=== PATIENT | female | born 1945 | race Caucasian/White ===

== ENCOUNTER → 2019-12-15 11:50 | Outpatient (CLI) | payer OTHER, SELFPAY ==
--- NOTE | ~2019-12-15 | XR_ITS ---
EXAMINATION: XR hip LT min 2V DATE: 12/15/2019 12:13 INDICATION: Acute onset left hip pain post fall. TECHNIQUE: Anteroposterior and frog-leg lateral views of the left hip were obtained. COMPARISON: CT abdomen and pelvis dated 09/09/2018 FINDINGS: Alignment is normal. No fracture. Left hip joint space appears relatively preserved with chondrocalci nosis evident along the superolateral aspect of the femoral head. Heterotopic ossification/enthesopat hy at the ischial tuberosity and along the proximal hamstring tendons. Postoperative changes with 3 s mall metallic coils project over the central lower pelvis. IMPRESSION: 1. No acute osseous abnormality. Reviewed, dictated and finalized at location A.
== END ==
PROVIDERS: PCP Internal Medicine; Visit Provider Internal Medicine
DX: M25.552 Pain in left hip (principal)
CPT/HCPCS: 73502

== ENCOUNTER 2020-01-06 16:15 | Inpatient (IN) | payer OTHER, SELFPAY ==
[2020-01-06] VITALS (23 sets, daily range): BP systolic 105–146; BP diastolic 53–99; PULSE 55–66; RESP 14–25; TEMP 36.2–36.8; O2SAT 97–100; BMI 25.7
--- NOTE | ~2020-01-06 | CT_ITS ---
EXAMINATION: CTA chest PE protocol DATE: 01/06/2020 18:02 CDT INDICATION: Shortness of breath. History of breast cancer. Pleuritic chest pain. TECHNIQUE: Computed tomographic angiography (CTA) of the chest was performed with 100 mL Omnipaque-35 0 intravenous contrast. The dose-length product was 174.24 mGy-cm. Maximum intensity projection 3D-re constructions of the aorta and other arteries were constructed by the technologist on a separate work station. Automated exposure control and iterative reconstruction technique were employed. COMPARISON: CT dated 01/15/2011. FINDINGS: Study is technically adequate without evidence for pulmonary embolism. There is enlargement of the pulmonary arteries consistent with pulmonary arterial hypertension. No significant pleural or pericardial effusion. Cardiomegaly. There is a pleural-based right upper lobe mass measuring 2.2 x 1 .9 cm on coronal image 34. There is a 9 mm right upper lobe nodule, image 29. There is dependent atel ectasis. There are left upper lobe pleural-based nodules measuring 9 mm, image 36. There is a pleural -based left lower lobe nodule measuring 3.6 x 3 cm, axial image 69. The there is a 2 x 1.4 cm right h ilar lymph node, image 83. Status post left mastectomy. The visualized aspects of the upper abdomen a re unremarkable. No osteolytic or osteoblastic lesions are seen. There is dextroscoliosis of the thor acic spine. Moderate-severe thoracic spondylosis. There is mild peripheral interstitial lung disease, likely chronic. IMPRESSION: 1. Multiple bilateral pulmonary nodules/masses and right hilar lymphadenopathy, compatible with metas tatic disease, likely secondary to known breast cancer. 2: No evidence for pulmonary embolism. 3: Pulmonary arterial hypertension. 4: Mild interstitial lung disease, likely chronic. Reviewed, dictated and finalized at location A. IMPRESSION: 1. Multiple bilateral pulmonary nodules/masses and right hilar lymphadenopathy, compatible with metastatic disease, likely secondary to known breast cancer. 2: No evidence for pulmonary embolism. 3: Pulmonary arterial hypertension. 4: Mild interstitial lung disease, likely chronic.
--- NOTE | 2020-01-06 16:30 | ECG_ITS ---
Measurements Intervals [place] Rate: 64 P: 87 PA: 170 QRS: 2 QRSD: 113 T: 16 QT: 443 QTc: 457 Interpretive Statements SINUS RHYTHM INTRAVENTRICULAR CONDUCTION DELAY BASELINE ARTIFACT- I, II, III, AVR, AVF, V2-V4 BORDERLINE ECG Electronically Signed On 01-07-2020 7:03:56 CDT by Damion Armstrong D.O.
--- NOTE | 2020-01-06 16:46 | ED.SOB ---
HPI - SOB/Dyspnea General Chief Complaint: Shortness of Breath/Dyspnea Stated Complaint: LIGHTHEADED, SOB, CONFUSED Time Seen by Provider: 01/06/20 16:31 Source: patient and RN notes reviewed Mode of arrival: ambulatory Limitations: no limitations History of Present Illness HPI Narrative: Pt is a 74 y/o female with a Hx of breast cancer, who presents to the ED with c/o lt sided chest pain and SOB starting 2 days ago. She notes that her pain is aggravated with movement and breathing. Pt also reports a low-grade fever of 99 degrees and chronic LLE edema, but denies any productive cough, nausea, vomiting, or ABD pain. She notes that she hasn't had any recent sick contacts or travel. Follows at [facility] with Dr Camarillo (?) for her breast cancer. MD elicited complaint: shortness of breath and chest pain (lt sided) Onset (ago): day(s) (2) Associated symptoms: fever (low-grade) and other (LLE edema (chronic)) Treatment prior to arrival: none Related Data Allergies Allergy/AdvReac Type Severity Reaction Status Date / Time Cultivated Oat Pollen Allergy Unknown NASAL Uncoded 06/14/19 12:56 CONGESTION, EYES WATER Molds and Smuts Allergy Unknown NASAL Uncoded 06/14/19 12:56 CONGESTION, EYES WATER Review of Systems Review of Systems: All systems reviewed & are unremarkable except as noted in HPI and below Constitutional: Constitutional: Reports fever(s) (low-grade) Cardiovascular: Cardiovascular: Reports chest pain (lt sided) and Reports leg edema (LLE edema (chronic)) Respiratory: Respiratory: Denies cough (productive) and Reports dyspnea Gastrointestinal: Gastrointestinal: Denies abdominal pain, Denies nausea and Denies vomiting PMFSH Past Medical History Medical History A-fib Ankle fracture, right Anxiety Arthritis Back pain Bowel obstruction Cancer of left breast Cataracts, bilateral GERD (gastroesophageal reflux disease) HLD (hyperlipidemia) HTN (hypertension) Inguinal hernia Surgical History Surgical History History of bilateral knee replacement History of bowel resection History of hip replacement rt hip History of hysterectomy History of lumpectomy of left breast Hx of appendectomy Hx of cardiac catheterization Hx of cataract surgery Hx of dilation and curettage Hx of inguinal hernia repair Hx of tonsillectomy Hx of tubal ligation Family History Family History (Updated 05/27/14 @ 07:13 by DOCTOR UNKNOWN) Father Cerebrovascular accident Malignant neoplasm of prostate Mother Family history of throat cancer Family history of heart disease in male family member before age 55 Social History Social History Smoking status: Never smoker Gender identity (if verbalized by the patient): Female Exam Const: General: no acute distress and other (elderly; frail) HENMT: Head: normocephalic Chest: Chest palpation & inspection: tenderness (diffuse anterior lt chest wall tenderness) and other (Port-a-Cath in place on rt chest) Resp: Effort & Inspection: normal respiratory effort Auscultation: clear to auscultation bilaterally Cardio: Rate: regular rate Rhythm: regular rhythm Heart sounds: no murmurs GI: Inspection: normal to inspection GI Palp: Yes Soft to palpation and No Tenderness to palpation present (GI) Auscultation: normal bowel sounds Skin: General skin exam: normal color and other (warm; dry) Neuro: General: patient oriented x3 (alert) Speech: normal speech Motor exam (neuro): Other motor observations present (motor intact) Extrem: General: edema (3-4+ acute on chronic edema in lt leg; trace-1+ edema on rt leg) Psych: Mental Status: mental status grossly normal Affect: normal affect Course Course Emergency Course: d/w patient, she believes she is too weak to be able to safely access her home and would consider assisted
--- NOTE | 2020-01-06 16:52 | PC.NURSE ---
Pt having SOB, cough, chest pain, and dizziness for 2 days. Pt states she tried claritin with symptoms getting worse. Pt is A&Ox 4. Pt lungs diminished throughout. Pt states she has mid sternal chest tightness. Pt states she has been feeling weak today.
[2020-01-06 17:20] LABS: Basophils Percent Auto 0.8 % (0.2-1.2); Eosinophils Absolute Auto 0.2 K/mm3 (0-0.3); Eosinophils Percent Auto 2.9 % (0-4.4); Hematocrit 30.4 % (37.0-47.0); Immature Granulocyte Absolute 0.01 K/mm3 (0.00-0.031); Immature Granulocyte Percent A 0.2 % (0-0.5); Lymphocytes Absolute Auto 2.65 K/mm3 (0.9-3.2); Lymphocytes Percent Auto 50.4 % (18.3-44.2); Mean Corpuscular HGB Conc 32.9 g/dl (32-36); Mean Corpuscular Volume 100.3 fl (80-100); Mean Platelet Volume 10.7 fl (7.4-10.4); Monocytes Absolute Auto 0.6 K/mm3 (0.1-0.6); Neutrophils Absolute Auto 1.8 K/mm3 (1.3-6.7); Neutrophils Percent Auto 34.7 % (45.5-73.1); Platelet Count Result 209 k/mm3 (150-375); Red Blood Count 3.03 M/mm3 (4.2-5.4); Red Cell Distribution Width 13.3 % (11.5-14.5); White Blood Count 5.3 K/mm3 (4.5-10.0)
[2020-01-06 17:32] LABS: Alanine Aminotransferase 14 U/L (4-35); Albumin Level 3.6 g/dL (3.5-5.1); Alkaline Phosphatase 82 U/L (38-126); Aspartate Amino Transferase 33 U/L (14-36); Bilirubin,Total 0.3 mg/dL (0.2-1.3); Blood Urea Nitrogen 19 mg/dL (7-17); Calcium 9.1 mg/dL (8.4-10.2); Carbon Dioxide 25 mmol/L (22-30); Chloride 100 mmol/L (98-107); D Dimer 0.74 ug/mL (<0.48); Estimated CRCL calculation 41 ml/min; Estimated Glomerular Filt Rate > 60; Glucose 88 mg/dL (65-105); Sodium 131 mmol/L (137-145)
[2020-01-06 17:45] LABS: NT Pro B Type Natriuretic Pept 267 PG/ML (5-100); Troponin I < 0.012 ng/mL (0.000-0.034)
[2020-01-06] MEDS: LACTATED RINGERS 1,000 ML 60 ML IV CONT (21:36)
--- NOTE | 2020-01-06 22:16 | ADMGEN ---
This patient, Eryn Lynch, was admitted to Medical Room 348-01. Patient/family oriented to hospital policies and general routines including ID bracelet, bed and alarms, visiting hours, pain management, procedures, bathroom and other care routines, personal items, smoking policy, room service/diet, and visiting hours. Valuables list has been completed. Information on how to activate the Rapid Response Team has been discussed. Patient/Family are encouraged to report perceived risks to care and to ask questions if they do not understand what they are told or what they should do.
[2020-01-07] VITALS (7 sets, daily range): BP systolic 109–138; BP diastolic 53–62; PULSE 55–88; RESP 16–18; TEMP 36.7–36.9; O2SAT 92–99; BMI 25.7
--- NOTE | 2020-01-07 | ECHO_ITS ---
Patient Info Name: Eryn Lynch Age: 74 years : 1945 Gender: Female Ht: 60 in Wt: 132 lbs BSA: 1.61 m2 HR: 70 bpm BP: 109 / 53 mmHg Heart Rhythm: Sinus Rhythm Technical Quality: Good Exam Date: 01/07/2020 11:56 AM Exam Location: [facility] Pulmonary Patient Status: Inpatient Admit Date: 01/06/2020 Staff Ordering Physician: Miguel A Barboza MD Fisher Clam: Olamide Garcia RDCS Attending Provider: Ayana Barahona DO Referring Physician: Jabari MONTES; Exam Type: CA echo doppler color flow Study Info Indications R06.02 - Shortness of breath Complete two-dimensional, color flow and Doppler transthoracic echocardiogram is performed. Summary 1. Left ventricular chamber dimension is normal. 2. Left ventricular systolic function is normal, estimated at >70%. 3. There is moderately increased left ventricular wall thickness. 4. The left ventricular diastolic function is grade I diastolic dysfunction. 5. Left atrial chamber dimension is mildly enlarged. 6. There is mild aortic valve regurgitation. 7. The mitral valve has calcified annulus. 8. There is mild mitral valve regurgitation. 9. There is mild tricuspid valve regurgitation. 10. There is mild pulmonic regurgitation. Left Ventricle Left ventricular chamber dimension is normal. Left ventricular systolic function is normal, estimated at >70%. There is moderately increased left ventricular wall thickness. The left ventricular diastolic function is grade I diastolic dysfunction. Right Ventricle Right ventricular chamber dimension is normal. Right ventricular systolic function is normal. Left Atria Left atrial chamber dimension is mildly enlarged. Right Atria Right atrial chamber dimension is normal. Atrial Septum Intact interatrial septum visualized by color flow imaging. Aortic Valve The aortic valve is trileaflet. There is mild aortic valve sclerosis. There is no aortic valve stenosis. There is mild aortic valve regurgitation. Pulmonic Valve The pulmonic valve is normal. There is no pulmonic valve stenosis. There is mild pulmonic regurgitation. Mitral Valve The mitral valve has calcified annulus. There is no mitral valve stenosis. There is mild mitral valve regurgitation. Tricuspid Valve The tricuspid valve leaflets are normal. There is no significant tricuspid valve stenosis. There is mild tricuspid valve regurgitation. No pulmonary hypertension, estimated pulmonary arterial systolic pressure is 29 mmHg. Pericardium/Pleural The pericardium appears normal. There is no pericardial effusion. Inferior Vena Cava Normal inferior vena cava with >50% collapse upon inspiration consistent with normal right atrial pressure, 10 mmHg. Aorta The aortic root size at the sinus of Valsalva is normal. The prox ascending aorta size is normal. There is mild aortic atherosclerosis. Left Ventricular Outflow Tract Name Value Normal LVOT 2D LVOT Diameter 2.0 cm LVOT Doppler LVOT Peak Gradient 4 mmHg LVOT Mean Gradient 2 mmHg LVOT VTI
[2020-01-07] MEDS: AMIODARONE HCL 200 MG TABLET PO (09:34)
[2020-01-07] MEDS: ISOSORBIDE MONONITRATE 30 MG TAB.ER.24H PO (09:34)
[2020-01-07] MEDS: GABAPENTIN 300 MG CAPSULE PO ×3 (09:35→17:53)
--- NOTE | 2020-01-07 09:41 | PM.IMHP ---
H&P: HPI History of Present Illness Chief complaint: LIGHTHEADED, SOB, CONFUSED Narrative: Date of visit 01/07/20 0900. Eryn Lynch is a 74 year old female With history of breast carcinoma and uterine carcinoma presents with increasing shortness of breath with exertion and rest. fullness in her chest but no real chest pain, no fever and occasional dry cough. Was feeling little lightheaded so came to the ER for evaluation after contacted her primary care. as stated no fever, no recent travel, and now exposure to any ill contacts. CTA in he ER showed no pulmonary emboli but multiple pulmonary nodules and lymphadenopathy. admitted for further evaluation and possible placement Review of Systems Review of Systems: Narrative: constitutional she has lost weight at least 15 lb but not sure exactly how much over last several months, appetite fair, no fever or chills has per present illness Eye no double vision scotoma mouth no pharyngitis laryngitis pulmonary as per present illness CV no chest chronic left pedal edema and no palpitation no dysuria hematuria GI no melena hematochezia diarrhea constipation . Muscle skeletal no particular joint discomfort neuro alert no focal deficits, is no seizure or syncope integument no rashes or skin breakdown PMFSH Family History Family History (Updated 01/06/20 @ 22:19 by Rebecca Garcia RN) Father Malignant neoplasm of prostate Cerebrovascular accident Mother Family history of heart disease in male family member before age 55 Family history of throat cancer Daughter Hypertension Social History Social History Smoking status: Never smoker Second hand tobacco smoke exposure: No Alcohol intake: never Substance use: never Gender identity (if verbalized by the patient): Female Spiritual care concerns: No Agree to blood products: Yes Meds Home Medications and Allergies Home Medications Medication Instructions Recorded Confirmed Type acetaminophen 1,000 mg PO DAILY PRN 01/06/20 01/06/20 History albuterol sulfate 2 puff INHALATION Q4-6H PRN 01/06/20 01/06/20 History amiodarone 200 mg PO DAILY 01/06/20 01/06/20 History duloxetine 30 mg PO HS 01/06/20 01/06/20 History gabapentin 300 mg PO TID 01/06/20 01/06/20 History ibuprofen 400 mg PO Q6H PRN 01/06/20 01/06/20 History isosorbide mononitrate 30 mg PO DAILY 01/06/20 01/06/20 History lorazepam 0.5 mg PO TID PRN 01/06/20 01/06/20 History melatonin 3 mg PO HS PRN 01/06/20 01/06/20 History oxycodone 5 mg PO Q4-6H PRN 01/06/20 01/06/20 History simvastatin 40 mg PO HS 01/06/20 01/06/20 History diphenhydramine HCl [Benadryl] 25 mg PO Q4-6H PRN 01/07/20 01/07/20 History Allergies Allergy/AdvReac Type Severity Reaction Status Date / Time Cultivated Oat Pollen Allergy Unknown NASAL Uncoded 06/14/19 12:56 CONGESTION, EYES WATER Molds and Smuts Allergy Unknown NASAL Uncoded 06/14/19 12:56 CONGESTION, EYES WATER Vital Signs Vital Signs - 24 hr 01/06/20 16:26 01/06/20 16:27 01/06/20 16:30 Temperature Pulse Rate 63 64 64 Respiratory Rate 20 18 20 Blood Pressure 120/71 Pulse Oximetry 100 100 99 01/06/20 16:31 01/06/20 16:40 01/06/20 16:43 Temperature 36.8 C Pulse Rate 65 64 62 Respiratory Rate 18 22 H 22 H Blood Pressure 110/58 L 105/74 105/74 Pulse Oximetry 97 98 01/06/20 16:45 01/06/20 17:00 01/06/20 17:33 Temperature Pulse Rate 62 65 55 L Respiratory Rate 19 15 19 Blood Pressure Pulse Oximetry 01/06/20 17:55 01/06/20 17:56 01/06/20 18:00 Temperature Pulse Rate 57 L 56 L Respiratory Rate 18 15 19 Blood Pressure 146/53 H Pulse Oximetry 01/06/20 18:02 01/06/20 18:03 01/06/20 18:15 Temperature Pulse Rate 55 L 55 L 61 Respiratory Rate 21 H 16 18 Blood Pressure 115/99 H Pulse Oximetry 01/06/20 18:30 01/06/20 19:22 01/06/20 19:31 Temperature Pulse Rate 62 R
[2020-01-07] MEDS: IBUPROFEN 400 MG TABLET PO (10:03)
--- NOTE | 2020-01-07 16:03 | HOMEO2EVAL ---
Home Oxygen Evaluation RC: Home Oxygen (O2) Evaluation Start: 01/07/20 14:39 Freq: ONCE Status: Active Protocol: RPE Activity Type Activity Date Activity User E-Sign Co-Sign Detail Recorded Client Recorded Date Recorded By Document 01/07/20 15:40 [email or web address] [id number] 01/07/20 16:03 KENJI Document 01/07/20 15:45 KENJI [id number] 01/07/20 16:03 KENJI Document 01/07/20 15:55 KENJI [id number] 01/07/20 16:03 KENJI 01/07/20 01/07/20 01/07/20 15:40 15:45 15:55 Home O2 Evaluation Test Phase Resting Exercise Resting Oxygen Delivery Room Air Room Air Room Air Pulse Oximetry (90-100 %) 96 92 96 Pulse Rate (60-100 beats/min) 68 88 70 Activity Tolerance Fair Rating of Perceived Dyspnea (PD) +2 Mild, Some Difficulty, Noticeable to the Observer Ambulation Distance (feet) 50 Home Oxygen Evaluation Comments NO HOME O2 NEEDED. Treatment Charges O2 Evaluation
--- NOTE | 2020-01-07 16:04 | PCRCNOTE ---
HOME O2 EVAL DONE, NO HOME O2 NEEDED. RN AWARE.
[2020-01-07] MEDS: ACETAMINOPHEN 500 MG TABLET 1000 MG PO (19:56)
[2020-01-07] MEDS: SIMVASTATIN 20 MG TABLET 40 MG PO (20:00)
[2020-01-07] MEDS: ENOXAPARIN 40 MG/0.4 ML SYRINGE SUB-Q (20:00)
[2020-01-07] MEDS: DULOXETINE HCL 30 MG CAPSULE.DR PO (20:00)
[2020-01-07] MEDS: MELATONIN 3 MG TABLET PO (20:00)
[2020-01-08 05:06] VITALS: BP 115/53; PULSE 60; RESP 16; TEMP 36.7; O2SAT 99
[2020-01-08 08:17] VITALS: PULSE 72
[2020-01-08] MEDS: AMIODARONE HCL 200 MG TABLET PO (08:17)
[2020-01-08] MEDS: GABAPENTIN 300 MG CAPSULE PO (08:18)
[2020-01-08] MEDS: ISOSORBIDE MONONITRATE 30 MG TAB.ER.24H PO (08:19)
--- NOTE | 2020-01-08 18:22 | PM.DS ---
DS: Diagnosis Admitting Diagnosis Admitting Diagnosis: Shortness of breath Discharge Diagnosis (1) Shortness of breath: Code(s): R06.02 - Shortness of breath Status: Acute Assessment and Plan: probably on the basis of the multiple pulmonary nodules in previous radiation therapy with interstitial lung disease. CTA revealed no emboli and BNP normal but will check echo also. Echo revealed normal ejection fraction of 70% with no valvular abnormalities. Or pulmonary hypertension.. Patient did not desaturate with ambulation. She was instructed to follow-up with her oncologist with a copy of the disc of the CT scan and has a scheduled appointment on 01/19 (2) Pulmonary nodules/lesions, multiple: Code(s): R91.8 - Other nonspecific abnormal finding of lung field Status: Acute Assessment and Plan: ER P felt was probably metastatic breast cancer which could be but had patient had and TAHBSO for uterine carcinoma in October 2018 and apparently there was some metastatic disease at that time. did have radiation and chemotherapy and is followed by Dr. Camarillo and already has a scheduled appointment on 01/19 (3) Uterine carcinoma: Code(s): C55 - Malignant neoplasm of uterus, part unspecified Status: Acute Assessment and Plan: status post total abdominal hysterectomy as above with radiation therapy and chemo for uterine carcinoma in October of 2018. (4) A-fib: Code(s): I48.91 - Unspecified atrial fibrillation Status: Acute Assessment and Plan: Remained in sinus rhythm but will continue her amiodarone. There was not thought to be enough interstitial changes to consider amiodarone as a cause for her shortness of breath. DS: Summary Hospital Course Hospital Course: 74-year-old white female with history of atrial fibrillation and breast as well as uterine cancer presented with increasing shortness of breath. CTA revealed no emboli but multiple pulmonary nodules and some interstitial changes.. Echo reading field normal ejection fraction and it was felt the shortness of breath was probably secondary to the pulmonary masses and interstitial changes. She has been on amiodarone but interstitial changes did not appear significant enough to cause her symptomatology She will follow-up with her oncologist on 01/19 with a copy of the disc of her CT of the chest Time Spent with Patient Time attestation: Total time spent providing and/or coordinating discharge services:35 minutes Exam Narrative: Exam Narrative: Condition on discharge Blood pressure 115/52 pulse 60 saturating 99% on room air Lungs are clear CV regular rate rhythm Abdomen benign Extremity chronic lymphedema of left leg no edema on right Neuro alert pleasant cooperative no focal deficits DS: Data Data Completed and Pending Labs on day of discharge: Preliminary micro results at discharge 01/07/20 07:55 Blood Culture - Preliminary Blood 01/07/20 05:28 Blood Culture - Preliminary Blood Discharge Plan Discharge Attending physician on discharge: Miguel A Barboza Discharging Clinician: Miguel A Barboza Patient Disposition: Home Health Service Activity: as tolerated Diet: regular Discharge Instructions: Per Care Coordination, Patient to discharge with [facility] [phone]. Keep scheduled appt with Dr Camarillo on 01/19 and take xray disc with you Patient Instructions: Antibiotic Form, Weakness (DC), Dyspnea (DC), Lightheadedness (ED) Stand Alone Forms: General Discharge Information Follow-up/Referrals: Czech,Eros Barclay MD [Primary Care Provider] - Keep Reg. Scheduled Appt. Discharge Medications: Continued simvastatin 40 mg tablet 40 mg PO HS RF: 0 amiodarone 200 mg tablet 200 mg PO DAILY RF: 0 isosorbide mononitrate 30 mg tablet extended release 24 hr 30 mg PO DAILY RF: 0 melatonin 3 mg Tablet 3 mg PO HS PRN (Reason: Insomnia) RF: 0 aceta
== END 2020-01-08 11:02 | disposition home health service (06) | DRG 204 ==
LOC: ANHED 20:11 → ANH3MED 20:35
PROVIDERS: Admitting Provider Hospitalist; Emergency Provider Emergency Medicine; PCP Internal Medicine; Visit Provider Internal Medicine
DX: R91.8 Other nonspecific abnormal finding of lung field (principal); J84.9 Interstitial pulmonary disease, unspecified; C50.919 Malignant neoplasm of unspecified site of unspecified female breast; I48.91 Unspecified atrial fibrillation; M19.90 Unspecified osteoarthritis, unspecified site; K21.9 Gastro-esophageal reflux disease without esophagitis; E78.5 Hyperlipidemia, unspecified; I10 Essential (primary) hypertension; F41.9 Anxiety disorder, unspecified; Z96.653 Presence of artificial knee joint, bilateral; Z96.641 Presence of right artificial hip joint; Z98.42 Cataract extraction status, left eye; Z98.41 Cataract extraction status, right eye; Z90.710 Acquired absence of both cervix and uterus; Z85.42 Personal history of malignant neoplasm of other parts of uterus
CPT/HCPCS: 36415; 71275; 80053; 83880; 84484; 85025; 85380; 87040; 93005; 93306; 94618; 97161; 97165; 97530; 97535; 99285; A9270; J1650; J7120; Q9967

== ENCOUNTER 2020-01-20 15:23 | Emergency (ER) | payer OTHER, SELFPAY ==
--- NOTE | ~2020-01-20 | XR_ITS ---
EXAMINATION: XR lumbar spine 2-3V EXAM DATE: 01/20/2020 17:39 INDICATION: Fall, low back pain. TECHNIQUE: Lumber spine frontal, lateral, lateral L5-S1 projections for interpretation. Comparison is made to prior examination from 04/07/2019. FINDINGS: There is grade 1 anterolisthesis L4 on L5 with moderate disc disease at this level. Smaller subluxations and less disc disease at multiple other levels. There is moderate lumbar facet arthropa thy. Vertebral body heights are maintained. Evaluation of the sacrum and transverse processes is some what limited due to overlying bowel gas. Sacrum, sacroiliac joints, sacral arcuate lines appear intac t. Right hip replacement. IMPRESSION: 1. Moderate lumbar spondylosis. 2. No acute fracture line identified. Reviewed, dictated and finalized at location A.
--- NOTE | ~2020-01-20 | XR_ITS ---
EXAMINATION: XR chest 2V EXAM DATE: 01/20/2020 17:38 INDICATION: Dry cough, dyspnea. Weakness. TECHNIQUE: Frontal and lateral projections of the chest obtained and reviewed. Comparison is made to prior examination from 06/14/2019. FINDINGS: Interval development of approximately 3 cm opacity in the left lower lobe. Correlating wit h recent CT pulmonary scan, patient has pulmonary metastatic disease, the others are difficult to vis ualize on this study. No evidence of superimposed acute airspace disease. No pneumothorax or pleural effusion. Cardiomediastinal silhouette is normal. There are bony degenerative changes. Right-sided CT injectable Chemo-Port. IMPRESSION: 1. No acute cardiopulmonary findings. 2. Pulmonary metastatic disease. Reviewed, dictated and finalized at location A.
--- NOTE | ~2020-01-20 | CT_ITS ---
EXAMINATION: CT brain wo con EXAM DATE: 01/20/2020 16:49 INDICATION: Fall, injury, neck pain. TECHNIQUE: Spiral CT of the head was performed without contrast. Axial, coronal and sagittal images were reviewed. The dose-length product (DLP) for this examination was 605.33 mGy-cm. The exposure w as tailored according to patient size, and iterative reconstruction (ASIR) was used as additional dos e reduction technique. Comparison is made to prior examination from 06/14/2019. FINDINGS: There is a left frontal frontal mass involving the calvarium inner table, and causing mass effect on the left frontal lobe. Uncertain whether or not this mass is invading the left frontal lobe . It measures 3.4 x 2.0 cm on axial dimensions. There is associated left frontal vasogenic edema. The re is a right frontoparietal mass measuring 2.1 cm, left frontal vertex mass measuring 8 mm. Another right frontal lobe mass measuring about 1 cm less well delineated. There is also poorly visualized le ft cerebellar mass. Vasogenic edema associated with all of these. Most likely metastatic disease. The se are new compared to prior study. No acute intracranial hemorrhage. There is mild cerebral atrophy and microangiopathy. No extra-axial collections. Aside from the decreased mineralization from the osseous involvement of the left frontal mass, calvarium is unremarkable. IMPRESSION: At least 5 metastatic lesions identified, one involving the left frontal bone and another the left cerebellum. Others appear to be cortical with associated vasogenic edema. No acute hemorrha ge. Reviewed, dictated and finalized at location A. IMPRESSION: At least 5 metastatic lesions identified, one involving the left fr ontal bone and another the left cerebellum. Others appear to be cortical with a ssociated vasogenic edema. No acute hemorrhage.
--- NOTE | ~2020-01-20 | CT_ITS ---
EXAMINATION: CT cervical spine wo con EXAM DATE: 01/20/2020 16:49 INDICATION: Fall, head injury. Brain lesions. Neck pain. TECHNIQUE: Spiral CT of the cervical spine was performed without contrast. Axial images were reviewe d. Coronal and sagittal reformatted images were also reviewed. The dose-length product (DLP) for thi s examination was 117.47 mGy-cm. The exposure was tailored according to patient size (auto mA exposu re control), and iterative reconstruction (ASIR) was used as additional dose reduction technique. Com parison is made to prior examination from 06/14/2019. FINDINGS: There is no evidence of acute cervical fracture. The odontoid process is intact. Pre-dens space is normal. Prevertebral soft tissue is normal. There are no soft tissue abnormalities identi fied. There is no disc space widening or traumatic vertebral body subluxation suspected. Advanced c ervical spondylosis. A detailed level by level evaluation of spondylosis can be added as addendum if requested. IMPRESSION: 1. No acute cervical fracture. 2. Advanced cervical spondylosis. Reviewed, dictated and finalized at location A.
[2020-01-20 15:38] VITALS: BP 157/93; PULSE 64; RESP 18; TEMP 36.8; O2SAT 96
--- NOTE | 2020-01-20 16:34 | ED.FALL ---
HPI - Fall General Chief Complaint: Fall Stated Complaint: FALL Time Seen by Provider: 01/20/20 16:23 Source: patient Mode of arrival: EMS Limitations: no limitations History of Present Illness HPI Narrative: Patient is a 74-year-old female who presents to the emergency department via EMS after sustaining a fall. Patient was sitting in her chair and bent over to pick something on her shoe and fell out of her chair. Patient is uncertain if he hit her head. Patient thinks she may have, though states she did not. Patient is complaining of a headache and neck pain. Patient landed on her buttocks and is complaining of low back pain. Patient denies any extremity injury. Patient states she has had some cold symptoms including runny nose and cough as well as some mild shortness of breath recently. Patient was recently hospitalized for shortness of breath. MD complaint: fall Fall from: chair Fall witnessed: yes, by family Place fall occurred: home Loss of consciousness: none Prolonged down time: no Location of injury: head (? Patient unsure if she hit her head, complains of headache), neck, back and buttocks Associated symptoms (after fall): headache Related Data Home Medications Medication Instructions Recorded Confirmed acetaminophen 1,000 mg PO DAILY PRN 01/06/20 01/06/20 albuterol sulfate 2 puff INHALATION Q4-6H PRN 01/06/20 01/06/20 amiodarone 200 mg PO DAILY 01/06/20 01/06/20 duloxetine 30 mg PO HS 01/06/20 01/06/20 gabapentin 300 mg PO TID 01/06/20 01/06/20 ibuprofen 400 mg PO Q6H PRN 01/06/20 01/06/20 isosorbide mononitrate 30 mg PO DAILY 01/06/20 01/06/20 lorazepam 0.5 mg PO TID PRN 01/06/20 01/06/20 melatonin 3 mg PO HS PRN 01/06/20 01/06/20 oxycodone 5 mg PO Q4-6H PRN 01/06/20 01/06/20 simvastatin 40 mg PO HS 01/06/20 01/06/20 diphenhydramine HCl [Benadryl] 25 mg PO Q4-6H PRN 01/07/20 01/07/20 Allergies Allergy/AdvReac Type Severity Reaction Status Date / Time Cultivated Oat Pollen Allergy Unknown NASAL Uncoded 01/20/20 15:28 CONGESTION, EYES WATER Molds and Smuts Allergy Unknown NASAL Uncoded 01/20/20 15:28 CONGESTION, EYES WATER Review of Systems Review of Systems: All systems reviewed & are unremarkable except as noted in HPI and below PMFSH Past Medical History Medical History A-fib Ankle fracture, right Anxiety Arthritis Back pain Bowel obstruction Cancer of left breast Cataracts, bilateral GERD (gastroesophageal reflux disease) HLD (hyperlipidemia) HTN (hypertension) Inguinal hernia Surgical History Surgical History History of bilateral knee replacement History of bowel resection History of hip replacement rt hip History of hysterectomy History of lumpectomy of left breast Hx of appendectomy Hx of cardiac catheterization Hx of cataract surgery Hx of dilation and curettage Hx of inguinal hernia repair Hx of tonsillectomy Hx of tubal ligation Family History Family History (Updated 01/06/20 @ 22:19 by Rebecca Garcia RN) Father Malignant neoplasm of prostate Cerebrovascular accident Mother Family history of heart disease in male family member before age 55 Family history of throat cancer Daughter Hypertension Social History Social History Smoking status: Never smoker Second hand tobacco smoke exposure: No Alcohol intake: never Substance use: never Gender identity (if verbalized by the patient): Female Spiritual care concerns: No Agree to blood products: Yes Exam Const: General: cooperative, no acute distress and alert Nutritional Appearance: well nourished Orientation/consciousness: patient oriented x3 Limitations: no limitations Eyes: Conjunctivae: conjunctivae normal Pupils: Equal, round and reactive pupils present Resp: Effort & Inspection: nor
[2020-01-20 17:13] VITALS: BP 176/78; PULSE 57; RESP 17; O2SAT 100
[2020-01-20 17:19] LABS: Basophils Percent Auto 0.6 % (0.2-1.2); Eosinophils Absolute Auto 0.1 K/mm3 (0-0.3); Eosinophils Percent Auto 1.6 % (0-4.4); Hemoglobin 10.7 g/dL (12.0-15.0); Immature Granulocyte Absolute 0.01 K/mm3 (0.00-0.031); Immature Granulocyte Percent A 0.2 % (0-0.5); Lymphocytes Absolute Auto 1.69 K/mm3 (0.9-3.2); Lymphocytes Percent Auto 34.1 % (18.3-44.2); Mean Corpuscular HGB Conc 32.4 g/dl (32-36); Mean Corpuscular Hemoglobin 33.3 pg (26-34); Mean Corpuscular Volume 102.8 fl (80-100); Mean Platelet Volume 10.5 fl (7.4-10.4); Monocytes Absolute Auto 0.7 K/mm3 (0.1-0.6); Monocytes Percent Auto 13.1 % (2.6-8.5); Neutrophils Absolute Auto 2.5 K/mm3 (1.3-6.7); Neutrophils Percent Auto 50.4 % (45.5-73.1); Platelet Count Result 286 k/mm3 (150-375); Red Blood Count 3.21 M/mm3 (4.2-5.4); Red Cell Distribution Width 13.2 % (11.5-14.5)
[2020-01-20 17:30] LABS: Alanine Aminotransferase 14 U/L (4-35); Albumin Level 3.9 g/dL (3.5-5.1); Alkaline Phosphatase 97 U/L (38-126); Aspartate Amino Transferase 36 U/L (14-36); Bilirubin,Total 0.3 mg/dL (0.2-1.3); Blood Urea Nitrogen 12 mg/dL (7-17); Calcium 9.7 mg/dL (8.4-10.2); Carbon Dioxide 28 mmol/L (22-30); Chloride 101 mmol/L (98-107); Estimated Glomerular Filt Rate > 60; Glucose 93 mg/dL (65-105); Potassium 3.7 mmol/L (3.4-5.0); Sodium 135 mmol/L (137-145)
[2020-01-20 18:08] VITALS: BP 103/65; BP 116/105; PULSE 55; PULSE 62
[2020-01-20 18:29] LABS: Add Urine Microscopic? NO; Appearance Urine Clear (Clear); Bilirubin Urine Negative (Negative); Blood Urine Negative (Negative); Color Urine Straw (Yellow); Glucose Urine UA Negative (Negative); Ketones Urine Negative (Negative); Leukocyte Esterase Ur Negative LEU/UL (Negative); Nitrate Urine Negative (Negative); Protein Urine Negative (Negative); Specific Grav Ur 1.009 (1.001-1.035); Urobilinogen Urine Negative mg/dL (<2.0)
[2020-01-20 19:07] VITALS: BP 146/87; PULSE 58; RESP 13; O2SAT 94
[2020-01-20] MEDS: DEXAMETHASONE 2 MG TABLET 6 MG PO (20:05)
--- NOTE | 2020-01-20 20:34 | PC.NURSE ---
Upon discharging patient, patient reports she cannot go home tonight because there is nobody to take care of me. Patient states her has been caring for her up until now but it is too hard for him. Patient also states her daughter cannot come over to her house due to the patient possibly being exposed to COVID-19 so she won't be able to work. ED charge nurse Mercedez and EDP Jolly aware.
[2020-01-20 20:36] VITALS: BP 152/69; PULSE 65; RESP 16; TEMP 36.8; O2SAT 100
--- NOTE | 2020-01-20 21:15 | PC.NURSE ---
EDP Jolly notified patient and that she would be not be admitted to the hospital. Patient then requested to speak to this RN stating she is ready to go home. Patient stated she has a walker at home she uses to get around the house and would just need assistance getting up her stairs. Patient then stated she can make a few phone calls to get that assistance. ED charge nurse Mercedez notified.
[2020-01-20 21:22] VITALS: BP 123/92; PULSE 62; RESP 15; TEMP 36.7; O2SAT 93
== END 2020-01-20 21:25 | disposition home or self-care (01) ==
PROVIDERS: Emergency Provider Emergency Medicine; PCP Internal Medicine
DX: S39.012A Strain of muscle, fascia and tendon of lower back, initial encounter (principal); S16.1XXA Strain of muscle, fascia and tendon at neck level, initial encounter; C79.31 Secondary malignant neoplasm of brain; I48.91 Unspecified atrial fibrillation; F41.9 Anxiety disorder, unspecified; M19.90 Unspecified osteoarthritis, unspecified site; Z85.3 Personal history of malignant neoplasm of breast; K21.9 Gastro-esophageal reflux disease without esophagitis; I10 Essential (primary) hypertension; E78.5 Hyperlipidemia, unspecified; Z85.42 Personal history of malignant neoplasm of other parts of uterus; C78.00 Secondary malignant neoplasm of unspecified lung; Z98.49 Cataract extraction status, unspecified eye; Z96.641 Presence of right artificial hip joint; M47.812 Spondylosis without myelopathy or radiculopathy, cervical region; M47.816 Spondylosis without myelopathy or radiculopathy, lumbar region; W07.XXXA Fall from chair, initial encounter
CPT/HCPCS: 36415; 51701; 70450; 71046; 72100; 72125; 80053; 81003; 85025; 96365; 99284; J0131; J8540

== ENCOUNTER 2020-02-09 21:11 | Emergency (ER) | payer OTHER, SELFPAY ==
--- NOTE | ~2020-02-09 | CT_ITS ---
EXAMINATION: CT cervical spine wo con, CT brain wo con EXAM DATE: 02/09/2020 23:22 INDICATION: Fall, posterior head injury, neck pain. TECHNIQUE: Spiral CT of the head was performed without contrast. Axial, coronal and sagittal images were reviewed. Spiral CT of the cervical spine was performed without contrast. Axial images were rev iewed. Coronal and sagittal reformatted images were also reviewed. The dose-length product (DLP) fo r this examination was 173.49 (accession [id number]), 605.33 (accession [id number]) mGy-cm. The exposure was tailored according to patient size, and iterative reconstruction (ASIR) was used as additional dose reduction technique. Comparison is made to prior examination from 01/20/2020. FINDINGS: Head CT: Again there are about 10 brain masses, which are better visualized on this exam than prior s tudy. These involve the cerebral hemispheres, right basal ganglia, left cerebellum. Slight interval d ecrease in the associated vasogenic edema which was previously seen. These changes could be from some interval treatment. Left frontal lobe mass which is the largest erodes into the calvarium. Small lef t frontal scalp contusion. No acute intracranial hemorrhage. There is mild cerebral atrophy and microangiopathy. No extra-axial collections. Aside from the decreased mineralization from the osseous involvement of the left frontal mass, calvarium is unremarkable. Cervical spine: Right-sided portacatheter. There is no evidence of acute cervical fracture. The odon toid process is intact. Pre-dens space is normal. Prevertebral soft tissue is normal. There are no soft tissue abnormalities identified. There is no disc space widening or traumatic vertebral body s ubluxation suspected. Advanced cervical spondylosis. A detailed level by level evaluation of lito moran can be added as addendum if requested. IMPRESSION: 1. No acute intracranial findings or cervical fracture. 2. About 10 brain metastatic lesions, with mild decrease in associated vasogenic edema which could b e response to interval treatment. 3. Advanced cervical spondylosis. Reviewed, dictated and finalized at location G. IMPRESSION: 1. No acute intracranial findings or cervical fracture. 2. About 10 brain metastatic lesions, with mild decrease in associated vasogen ic edema which could be response to interval treatment. 3. Advanced cervical spondylosis.
--- NOTE | ~2020-02-09 | XR_ITS ---
EXAMINATION: XR shoulder RT min 2V EXAM DATE: 02/09/2020 23:38 INDICATION: Initial encounter following injury, with pain of the right shoulder. Metastatic disease. Fall. TECHNIQUE: The following right shoulder projections obtained: frontal projection with internal rotati on, frontal projection with external rotation, Grashey, and scapular Y view (4+ views). Comparison is made to prior examination from 04/08/2019. FINDINGS: Pulmonary metastatic disease. Right-sided Chemo-Port. No evidence of right shoulder rotato r cuff calcific tendinosis. There is mild glenohumeral and acromioclavicular joint primary osteoarth ritis. There are no acute fractures identified. IMPRESSION: 1. No acute right shoulder fracture identified. 2. Pulmonary metastatic disease. 3. Mild osteoarthritis. Reviewed, dictated and finalized at location G.
[2020-02-09 21:10] VITALS: BP 120/62; PULSE 55; RESP 18; TEMP 36.6; O2SAT 100
[2020-02-09 22:12] VITALS: BP 122/53; PULSE 60; RESP 18; O2SAT 98
--- NOTE | 2020-02-09 23:04 | ED.FALL ---
HPI - Fall General Chief Complaint: Fall Stated Complaint: fall Time Seen by Provider: 02/09/20 22:27 Source: patient Mode of arrival: EMS History of Present Illness HPI Narrative: This patient is a 74 yo female who presents for evaluation of pain s/p fall. Patient's states that patient was in the shower when she fell. He states his daughter was trying to transfer patient to the shower chair when patient fell onto her buttock. Patient states that her main pain is located in her neck. Her states his daughter reported that patient did not hit her head, but the patient states she did hit her head. HE states she is just so weak patient is unable to walk. She needs significant assistance. THis patient has metastatic cancer with mets to lung and brain. She is getting treatment at [facility] and she is scheduled for radiation treatments tomorrow. Related Data Home Medications Medication Instructions Recorded Confirmed acetaminophen 1,000 mg PO DAILY PRN 01/06/20 01/06/20 albuterol sulfate 2 puff INHALATION Q4-6H PRN 01/06/20 01/06/20 amiodarone 200 mg PO DAILY 01/06/20 01/06/20 duloxetine 30 mg PO HS 01/06/20 01/06/20 gabapentin 300 mg PO TID 01/06/20 01/06/20 ibuprofen 400 mg PO Q6H PRN 01/06/20 01/06/20 isosorbide mononitrate 30 mg PO DAILY 01/06/20 01/06/20 lorazepam 0.5 mg PO TID PRN 01/06/20 01/06/20 melatonin 3 mg PO HS PRN 01/06/20 01/06/20 oxycodone 5 mg PO Q4-6H PRN 01/06/20 01/06/20 simvastatin 40 mg PO HS 01/06/20 01/06/20 diphenhydramine HCl [Benadryl] 25 mg PO Q4-6H PRN 01/07/20 01/07/20 Allergies Allergy/AdvReac Type Severity Reaction Status Date / Time Cultivated Oat Pollen Allergy Unknown NASAL Uncoded 01/20/20 15:28 CONGESTION, EYES WATER Molds and Smuts Allergy Unknown NASAL Uncoded 01/20/20 15:28 CONGESTION, EYES WATER Review of Systems Review of Systems: All systems reviewed & are unremarkable except as noted in HPI and below Constitutional: Constitutional: Denies chills, Denies fever(s) and Reports weakness ENT: Denies sore throat Cardiovascular: Cardiovascular: Denies chest pain Respiratory: Respiratory: Denies cough and Denies dyspnea Gastrointestinal: Gastrointestinal: Denies abdominal pain Musculoskeletal: Musculoskeletal: Reports back pain Neurologic: Denies focal weakness and Reports weakness PMFSH Family History Family History (Updated 01/06/20 @ 22:19 by Rebecca Garcia RN) Father Malignant neoplasm of prostate Cerebrovascular accident Mother Family history of heart disease in male family member before age 55 Family history of throat cancer Daughter Hypertension Social History Social History Smoking status: Never smoker Second hand tobacco smoke exposure: No Alcohol intake: never Substance use: never Gender identity (if verbalized by the patient): Female Spiritual care concerns: No Agree to blood products: Yes Exam Const: General: ill appearing chronically Orientation/consciousness: patient oriented x3 HENMT: Head: normocephalic and other (there is scalp tenderness, no hematoma) Face and sinus: face symmetric Mouth: Yes Normal oral and palatal mucosa present Throat: posterior oropharynx normal and uvula midline Eyes: Conjunctivae: conjunctivae normal Pupils: Equal, round and reactive pupils present EOM: EOMs intact bilaterally Neck: Neck: normal visual inspection Chest: Chest palpation & inspection: normal inspection of the chest and no tenderness Resp: Effort & Inspection: normal respiratory effort Auscultation: clear to auscultation bilaterally Cardio: Rate: regular rate Rhythm: regular rhythm Heart sounds: no murmurs GI: Inspection: non-distended Auscultation: normal bowel sounds Neuro: General: patient oriented x3 and moves all extremities Extrem: Other: left lower extremity lymphedema; patient has bilateral lower extremity
[2020-02-10 00:06] VITALS: BP 138/55; PULSE 65; RESP 18; O2SAT 95
[2020-02-10 01:38] LABS: Basophils Percent Auto 0.1 % (0.2-1.2); Hematocrit 30.6 % (37.0-47.0); Hemoglobin 10.3 g/dL (12.0-15.0); Immature Granulocyte Absolute 0.09 K/mm3 (0.00-0.031); Immature Granulocyte Percent A 0.8 % (0-0.5); Immature Platelet Fraction Pct 5.3 % (0.9-11.2); Lymphocytes Percent Auto 2.7 % (18.3-44.2); Mean Corpuscular HGB Conc 33.7 g/dl (32-36); Mean Corpuscular Hemoglobin 33.3 pg (26-34); Mean Platelet Volume 11.1 fl (7.4-10.4); Monocytes Absolute Auto 0.4 K/mm3 (0.1-0.6); Monocytes Percent Auto 3.1 % (2.6-8.5); Neutrophils Absolute Auto 10.4 K/mm3 (1.3-6.7); Neutrophils Percent Auto 93.3 % (45.5-73.1); Platelet Count Result 149 k/mm3 (150-375); Red Blood Count 3.09 M/mm3 (4.2-5.4); Red Cell Distribution Width 13.6 % (11.5-14.5); White Blood Count 11.1 K/mm3 (4.5-10.0)
[2020-02-10 01:43] LABS: INR 0.9; Prothrombin Time 11.4 Seconds (11.1-14.7)
[2020-02-10 01:44] LABS: Alanine Aminotransferase 25 U/L (4-35); Albumin Level 2.9 g/dL (3.5-5.1); Alkaline Phosphatase 104 U/L (38-126); Aspartate Amino Transferase 23 U/L (14-36); Bilirubin,Total 0.2 mg/dL (0.2-1.3); Blood Urea Nitrogen 30 mg/dL (7-17); Calcium 8.1 mg/dL (8.4-10.2); Carbon Dioxide 32 mmol/L (22-30); Chloride 97 mmol/L (98-107); Estimated Glomerular Filt Rate > 60; Glucose 179 mg/dL (65-105); Partial Thromboplastin Time 22.8 SECONDS (22.3-36.8); Potassium 3.9 mmol/L (3.4-5.0); Sodium 128 mmol/L (137-145)
[2020-02-10 02:10] LABS: Add Urine Microscopic? YES; Appearance Urine Cloudy (Clear); Bacteria Urine Trace /hpf; Bilirubin Urine Negative (Negative); Blood Urine Negative (Negative); Color Urine Yellow (Yellow); Glucose Urine UA 2+ mg/dL (Negative); Ketones Urine Negative (Negative); Leukocyte Esterase Ur 3+ LEU/UL (Negative); Mucus Urine Few /lpf; Nitrate Urine Negative (Negative); Protein Urine Negative (Negative); Specific Grav Ur 1.017 (1.001-1.035); Urobilinogen Urine Negative mg/dL (<2.0); WBC Clumps Urine Present /HPF; WBC Urine >75 /hpf
[2020-02-10 02:15] VITALS: BP 114/53; PULSE 50; RESP 18; O2SAT 100
[2020-02-10 03:15] VITALS: BP 112/50; PULSE 62; RESP 14; O2SAT 98
[2020-02-10] MEDS: LACTATED RINGERS 1,000 ML 999 ML IV CONT (04:06)
[2020-02-10 04:45] VITALS: BP 111/44; PULSE 50; RESP 18; O2SAT 100
--- NOTE | 2020-02-10 05:02 | PC.NURSE ---
[id number] Called [facility] to request transport to [place]. ETA [phone] Called [facility] to request transport to [place]. [facility] declined
[2020-02-10 05:19] VITALS: BP 132/50; PULSE 53; RESP 16; O2SAT 100
== END 2020-02-10 05:42 | disposition short-term general hospital (02) ==
PROVIDERS: Emergency Provider General Practice; PCP Internal Medicine
DX: R53.1 Weakness (principal); C78.00 Secondary malignant neoplasm of unspecified lung; C79.31 Secondary malignant neoplasm of brain; C80.1 Malignant (primary) neoplasm, unspecified; N39.0 Urinary tract infection, site not specified; E87.1 Hypo-osmolality and hyponatremia; M47.812 Spondylosis without myelopathy or radiculopathy, cervical region; M19.011 Primary osteoarthritis, right shoulder
CPT/HCPCS: 36415; 51701; 70450; 72125; 73030; 80053; 81001; 85025; 85055; 85610; 85730; 87077; 87086; 87088; 87186; 96361; 96365; 99285; J0696; J7120